=== PATIENT | female | born 1960 | race African-American/Black ===

== ENCOUNTER 2017-03-06 07:24 | Day surgery (SDC) | payer BC ==
--- NOTE | ~2017-03-06 | EGD ---
EGD REPORT [facility] [address] [id number] NAME: ANNAMARIE STOCK : [birth year] STATUS : REG [facility]#: [id number] AGE: 56 ADM/REG DATE : 03/06/17 MR#: [id number] REPORT SERV DATE: 03/06/17 DICTATED BY: MERCEDEZ ZUNIGA DATE: 03/06/17 REPORT STATUS : Draft TRANSCRIBED BY: [facility] DATE: 03/06/17 Endoscopy Center Patient Name: Annamarie Stock Date of : 1960 Attending MD: MERCEDEZ ZUNIGA MD Procedure Date No Time: 03/06/2017 Procedure: Colonoscopy Indications: High risk colon cancer surveillance: Personal history of colonic polyps Referring MD: LARISSA TRINIDAD MD Medicines: as per anesthesia Complications: No immediate complications. Procedure: Pre-Anesthesia Assessment: - ASA Grade Assessment: III - A patient with severe systemic disease. After I obtained informed consent, the scope was passed under direct vision. Throughout the procedure, the patient's blood pressure, pulse, and oxygen saturations were monitored continuously. The [facility] [id number] was introduced through the anus and advanced to the cecum, identified by appendiceal orifice and ileocecal valve. The colonoscopy was somewhat difficult due to a tortuous colon. The patient tolerated the procedure. The quality of the bowel preparation was adequate to identify polyps. Findings: The perianal and digital rectal examinations were normal. Internal hemorrhoids were found during endoscopy and were mild. Impression: - Internal hemorrhoids. Recommendation: - Repeat colonoscopy in 5 years for surveillance. Procedure Code(s): --- Professional --- 64332, Colonoscopy, flexible, proximal to splenic flexure; diagnostic, with or without collection of specimen(s) by brushing or washing, with or without colon decompression (separate procedure) Diagnosis Code(s): --- Professional --- K64.8, Other hemorrhoids Z86.010, Personal history of colonic polyps CPT copyright 2013 [employer]. All rights reserved. EGD REPORT [facility] [address] [id number] NAME: ANNAMARIE STOCK : [birth year] STATUS : REG [facility] PAT#: [id number] AGE: 56 ADM/REG DATE : 03/06/17 MR#: [id number] REPORT SERV DATE: 03/06/17 DICTATED BY: MERCEDEZ ZUNIGA. DATE: 03/06/17 REPORT STATUS : Draft TRANSCRIBED BY: [employer] DATE: 03/06/17 The codes documented in this report are preliminary and upon cake maker review may be revised to meet current compliance requirements. MERCEDEZ ZUNIGA MD 03/06/2017 9:24 AM This report has been signed electronically. Number of Addenda: 0 Note Initiated On: 03/06/2017 8:50 AM Scope Withdrawal Time 0 hours 6 minutes 36 seconds [address] [id number]
[~2017-03-06 07:24] MED LIST: NEUR100 PO; OXAPROZIN600 MG PO; [UNRECOGNIZED DRUG - REMARK]
== END 2017-03-06 23:59 | disposition home or self-care (01) ==
LOC: DMU 07:24
PROVIDERS: Internal Medicine Gastroenterology
PROC: 0DJD8ZZ Inspection of Lower Intestinal Tract, Via Natural or Artificial Opening Endoscopic (ICD-10-PCS; principal; 2017-03-06 09:30)
DX: K64.8 Other hemorrhoids (principal); G47.33 Obstructive sleep apnea (adult) (pediatric); E66.01 Morbid (severe) obesity due to excess calories; M19.90 Unspecified osteoarthritis, unspecified site; Z98.51 Tubal ligation status; Z86.010 Personal history of colon polyps; Z98.890 Other specified postprocedural states